=== PATIENT | male | born 1950 | race Caucasian/White ===

== ENCOUNTER 2016-12-03 15:42 | Inpatient (IN) | payer OTHER, BC ==
[~2016-12-03] VITALS: Ht 182.9 cm; Wt 95.3 kg
[~2016-12-03 15:42] MED LIST: ALLOPURINOL300 MG PO; AMLODIPINE BESYL5 MG PO; ASPIRIN EC325 MG PO; ASPIRIN325 MG PO; ATORVASTATIN CA10 MG PO; BUPROPION XL150 MG PO; CELECOXIB200 MG PO; ENDOCET 5-3251 EACH PO; ESCITALOPRAM OX10 MG PO; FERROUS SULFAT325 MG PO; FOLIC ACID1 MG PO; FUROSEMIDE20 MG PO; HYDROCODON-ACE1 EAC7 PO; HYTRIN5 MG PO; LASIX20 MG PO; LIBRIUM25 MG PO; LIPITOR10 MG PO; LISINOPRIL10 MG PO; MICRO-K10 ME2 PO; NORVASC5 MG PO; PANTOPRAZOLE SO40 MG PO; POTASSIUM CHLO10 ME3 PO; PROTONIX40 MG PO; RANITIDINE HCL150 MG PO; SODIUM BICARBO325 MG PO; SODIUM CHLORIDE1 G1 PO; SPIRONOLACTONE100 MG PO; SPIRONOLACTONE25 MG PO; THERAGRAN1 TABLET PO; THIAMINE HCL100 MG PO; VANCOCIN 250 M250 MG PO; VANCOCIN HCL125 MG PO; VITAMIN B-1100 MG PO; WELLBUTRIN XL150 MG PO; ZYLOPRIM300 MG PO
[2016-12-03 17:04] LABS: HEMATOCRIT 29.9 % (38.0-50.0); MCH 31.8 PG (29.0-34.0); MCHC 33.1 G/DL (30.0-36.0); MCV 96.1 FL (86-99); MEAN PLAT.VOLUME 7.9 uM^3 (9.0-12.4); RBC DIS.WIDTH-CV 14.7 % (11.8-14.6); RBC DIS.WIDTH-SD 48.1 % (39-53)
[2016-12-03 17:05] LABS: PLATELET COUNT 229 K/uL (156-360); RED BLOOD COUNT 3.11 M/uL (4.00-5.50); WHITE BLOOD COUNT 18.7 K/uL (4.1-10.2)
[2016-12-03 17:08] LABS: INTER. NORMALIZED RATIO 1.2; PROTHROMBIN TIME 12.7 (9.2-11.2)
[2016-12-03 17:11] LABS: CHLORIDE 99 mEq/L (99-109); POTASSIUM 4.9 mEq/L (3.7-5.4); SODIUM 132 mEq/L (136-147)
[2016-12-03 17:13] LABS: GLUCOSE 63 mg/dL (70-99)
[2016-12-03 17:14] LABS: ANION GAP 11 MEQ/L (2-14)
[2016-12-03 17:17] LABS: GFR ESTIMATE (CALCULATED) 34 mL/min/
[2016-12-03 17:18] LABS: UREA NITROGEN (BUN) 22 mg/dL (9-23)
[2016-12-03 17:23] LABS: TROP-I INTERPRETATION NEGATIVE; TROPONIN-I 0.06 ng/mL (0.0-0.30)
[2016-12-03] MEDS ORDERED: BUPROPION XL300 MG PO (18:22)
[2016-12-03] MEDS ORDERED: LIDODERM 5% P1 PATCH TD (18:23)
[2016-12-03] MEDS ORDERED: DULCOLAX10 MG PR (18:25)
[2016-12-03] MEDS ORDERED: SODIUM CHLORIDE1 G1 PO (18:25)
[2016-12-03] MEDS ORDERED: PHILLIPS'400 MG/5 M PO (18:26)
[2016-12-03] MEDS ORDERED: MIRALAX255 GM PO (18:26)
[2016-12-03 19:35] LABS: POINT-OF-CARE METER ID UU13113702; POINT-OF-CARE USER ID SNPMEH
[2016-12-03 21:15] VITALS: BP 140/112; BP 95/47
[2016-12-03 22:00] VITALS: BP 96/53
[2016-12-03 22:28] LABS: METH RESISTANT S AUREUS PCR NEGATIVE (NEGATIVE)
[2016-12-03 22:30] VITALS: BP 82/53
[2016-12-03 22:30] LABS: PROBE CHECK PASS; SPECIMEN PROCESSING CONTROL PASS
[2016-12-03 23:00] VITALS: BP 95/59
[2016-12-03 23:30] VITALS: BP 100/58
[2016-12-04] VITALS (38 sets, daily range): BP systolic 75–104; BP diastolic 45–65
[2016-12-04 01:01] LABS: TYPE OF FLUID PARACENTESIS
[2016-12-04 02:22] LABS: BODY FLUID RBC'S < 1000 /MM^3 (0-100); BODY FLUID WBC'S 46 /MM^3 (0-500)
[2016-12-04 02:49] LABS: BODY FLUID EOSINOPHILS 0 % (0-25); MONO RAW COUNT 38; MONONUCLEAR WBC'S 38 %; POLY RAW COUNT 62; POLYNUCLEAR WBC'S 62 % (0-25)
[2016-12-04 02:51] LABS: COMMENT MANY MACROPHAGES SEE
[2016-12-04 06:31] LABS: ALKALINE PHOSPHATASE 68 IU/L (3-129); ANION GAP 9 MEQ/L (2-14); CHLORIDE 105 MEQ/L (99-109); GFR ESTIMATE (CALCULATED) 38 mL/min/; GLUCOSE 72 mg/dL (70-99); MAGNESIUM 1.4 mg/dl (1.3-2.7); POTASSIUM 4.3 MEQ/L (3.7-5.4); SAMPLE HEMOLYSIS CHECK 0; SAMPLE ICTERIC CHECK 0; SAMPLE LIPEMIA CHECK 0; SODIUM 135 MEQ/L (136-147); TOTAL BILIRUBIN 0.9 MG/DL (0.0-1.0); UREA NITROGEN (BUN) 21 mg/dL (9-23)
[2016-12-04 07:13] LABS: RED BLOOD COUNT ND M/uL (4.00-5.50); WHITE BLOOD COUNT ND K/uL (4.1-10.2)
[2016-12-04 07:14] LABS: HEMATOCRIT ND % (38.0-50.0); MCH ND PG (29.0-34.0); MCHC ND G/DL (30.0-36.0); MCV ND FL (86-99); PLATELET COUNT ND K/uL (156-360); RBC DIS.WIDTH-CV ND % (11.8-14.6); RBC DIS.WIDTH-SD ND % (39-53)
[2016-12-04 07:15] LABS: MEAN PLAT.VOLUME ND uM^3 (9.0-12.4)
[2016-12-04 07:29] LABS: INTER. NORMALIZED RATIO 1.5; PROTHROMBIN TIME 15.2 (9.2-11.2); PTT 39.5 (25-32)
[2016-12-04 08:49] LABS: ADD MIUA? YES; BILIRUBIN NEGATIVE; BLOOD MODERATE; COLOR YELLOW ((YELLOW)); GLUCOSE (STRIP) NEGATIVE; KETONES NEGATIVE; LEUKOCYTES NEGATIVE; NITRITE NEGATIVE; PROTEIN (STRIP) NEGATIVE; UROBILINOGEN 0.2 MG/DL (0.2-1.0)
[2016-12-04 08:51] LABS: CRYSTALS NONE SEEN; EPITHELIAL CELLS RARE; MUCUS NONE SEEN; PATHOLOGICAL CAST NONE SEEN; SMALL ROUND CELL NONE SEEN; UCUL ADDED? NO; YEAST-LIKE CELL NONE SEEN
[2016-12-04 09:05] LABS: HEMATOCRIT 19.8 % (38.0-50.0); MCHC 33.3 G/DL (30.0-36.0); MCV 96.1 FL (86-99); MEAN PLAT.VOLUME 8.4 uM^3 (9.0-12.4); RBC DIS.WIDTH-SD 51.3 % (39-53)
[2016-12-04 09:23] LABS: RED BLOOD COUNT 2.06 M/uL (4.00-5.50); WHITE BLOOD COUNT 12.5 K/uL (4.1-10.2)
[2016-12-04 09:24] LABS: PLATELET COUNT 93 K/uL (156-360)
[2016-12-04 09:55] LABS: BACTERIA 1+; CASTS PRESENT /LPF; HYALINE CASTS RARE /LPF
[2016-12-04 22:26] LABS: HEMATOCRIT 24.1 % (38.0-50.0); MCH 31.1 PG (29.0-34.0); MCHC 33.2 G/DL (30.0-36.0); MCV 93.8 FL (86-99); PLATELET COUNT 86 K/uL (156-360); RBC DIS.WIDTH-SD 50.3 % (39-53)
[2016-12-04 22:30] LABS: RED BLOOD COUNT 2.57 M/uL (4.00-5.50); WHITE BLOOD COUNT 8.1 K/uL (4.1-10.2)
[2016-12-05] VITALS (13 sets, daily range): BP systolic 91–122; BP diastolic 57–77
[2016-12-05 05:45] LABS: HEMATOCRIT 24.9 % (38.0-50.0); MCH 31.5 PG (29.0-34.0); MCHC 32.9 G/DL (30.0-36.0); MCV 95.8 FL (86-99); MEAN PLAT.VOLUME 8.6 uM^3 (9.0-12.4); PLATELET COUNT 98 K/uL (156-360); RBC DIS.WIDTH-CV 15.2 % (11.8-14.6); WHITE BLOOD COUNT 7.5 K/uL (4.1-10.2)
[2016-12-05 05:59] LABS: INTER. NORMALIZED RATIO 1.4; PROTHROMBIN TIME 14.8 (9.2-11.2); PTT 38.3 (25-32)
[2016-12-05 06:18] LABS: ALKALINE PHOSPHATASE 57 IU/L (3-129); ANION GAP 8 MEQ/L (2-14); CHLORIDE 108 MEQ/L (99-109); GLUCOSE 77 mg/dL (70-99); MAGNESIUM 1.3 mg/dl (1.3-2.7); POTASSIUM 3.7 MEQ/L (3.7-5.4); SAMPLE HEMOLYSIS CHECK 0; SAMPLE ICTERIC CHECK 0; SAMPLE LIPEMIA CHECK 0; SODIUM 137 MEQ/L (136-147); UREA NITROGEN (BUN) 17 mg/dL (9-23)
[2016-12-05 06:19] LABS: GFR ESTIMATE (CALCULATED) 54 mL/min/; TOTAL BILIRUBIN 1.1 MG/DL (0.0-1.0)
[2016-12-06 04:00] VITALS: BP 132/86
[2016-12-06 05:35] LABS: MCH 31.7 PG (29.0-34.0); MCHC 33.2 G/DL (30.0-36.0); MCV 95.6 FL (86-99); MEAN PLAT.VOLUME 8.7 uM^3 (9.0-12.4); PLATELET COUNT 101 K/uL (156-360); RBC DIS.WIDTH-CV 15.2 % (11.8-14.6); RBC DIS.WIDTH-SD 52.5 % (39-53); RED BLOOD COUNT 2.93 M/uL (4.00-5.50); WHITE BLOOD COUNT 7.2 K/uL (4.1-10.2)
[2016-12-06 05:49] LABS: INTER. NORMALIZED RATIO 1.4; PROTHROMBIN TIME 14.4 (9.2-11.2); PTT 36.8 (25-32)
[2016-12-06 06:07] LABS: ALKALINE PHOSPHATASE 61 IU/L (3-129); ANION GAP 7 MEQ/L (2-14); CHLORIDE 108 MEQ/L (99-109); GFR ESTIMATE (CALCULATED) > 59 mL/min/; GLUCOSE 81 mg/dL (70-99); MAGNESIUM 1.2 mg/dl (1.3-2.7); POTASSIUM 3.5 MEQ/L (3.7-5.4); SAMPLE HEMOLYSIS CHECK 0; SAMPLE ICTERIC CHECK 0; SAMPLE LIPEMIA CHECK 0; SODIUM 137 MEQ/L (136-147); TOTAL BILIRUBIN 0.9 MG/DL (0.0-1.0); UREA NITROGEN (BUN) 12 mg/dL (9-23)
[2016-12-06 08:00] VITALS: BP 127/81
[2016-12-06 15:40] VITALS: BP 118/78
[2016-12-06 20:17] VITALS: BP 109/70
[2016-12-06 23:51] VITALS: BP 124/79
[2016-12-07 04:18] VITALS: BP 126/78
[2016-12-07 08:00] VITALS: BP 136/90
[2016-12-07 15:46] VITALS: BP 108/69
[2016-12-07 23:31] VITALS: BP 132/78
[2016-12-08 07:14] LABS: EOSINOPHIL (%) 3.1 % (0-5); EOSINOPHIL COUNT 0.2 K/uL (0-0.3); HEMATOCRIT 31.8 % (38.0-50.0); IMMATURE GRANULOCYTE (%) 0.2 % (0.0-0.7); LYMPHOCYTE COUNT 1.3 K/uL (1.0-2.8); MCH 31.2 PG (29.0-34.0); MCHC 32.7 G/DL (30.0-36.0); MCV 95.5 FL (86-99); MEAN PLAT.VOLUME 9.1 uM^3 (9.0-12.4); MONOCYTE (%) 8.3 % (3-12); MONOCYTE COUNT 0.5 K/uL (0-0.8); NEUTROPHIL (%) 67.6 % (45-76); NEUTROPHIL COUNT 4.3 K/uL (1.8-6.4); PLATELET COUNT 116 K/uL (156-360); RBC DIS.WIDTH-SD 51.9 % (39-53); RED BLOOD COUNT 3.33 M/uL (4.00-5.50); WHITE BLOOD COUNT 6.4 K/uL (4.1-10.2)
[2016-12-08 07:23] VITALS: BP 131/77
[2016-12-08 07:39] LABS: ALKALINE PHOSPHATASE 67 IU/L (3-129); ANION GAP 7 MEQ/L (2-14); CHLORIDE 107 MEQ/L (99-109); GFR ESTIMATE (CALCULATED) > 59 mL/min/; GLUCOSE 80 mg/dL (70-99); MAGNESIUM 1.2 mg/dl (1.3-2.7); POTASSIUM 3.3 MEQ/L (3.7-5.4); SAMPLE HEMOLYSIS CHECK 0; SAMPLE ICTERIC CHECK 0; SAMPLE LIPEMIA CHECK 0; SODIUM 136 MEQ/L (136-147); UREA NITROGEN (BUN) 7 mg/dL (9-23)
[2016-12-08 11:10] VITALS: BP 129/73
[2016-12-08 15:30] VITALS: BP 126/69
[2016-12-08 19:22] VITALS: BP 120/73
[2016-12-08 23:45] VITALS: BP 114/66
[2016-12-09 03:02] VITALS: BP 113/63
[2016-12-09 07:37] LABS: EOSINOPHIL (%) 3.2 % (0-5); EOSINOPHIL COUNT 0.2 K/uL (0-0.3); HEMATOCRIT 29.9 % (38.0-50.0); IMMATURE GRANULOCYTE (%) 0.2 % (0.0-0.7); LYMPHOCYTE COUNT 1.2 K/uL (1.0-2.8); MCH 30.8 PG (29.0-34.0); MCHC 32.4 G/DL (30.0-36.0); MCV 94.9 FL (86-99); MONOCYTE (%) 7.7 % (3-12); MONOCYTE COUNT 0.5 K/uL (0-0.8); NEUTROPHIL COUNT 4.4 K/uL (1.8-6.4); PLATELET COUNT 103 K/uL (156-360); RBC DIS.WIDTH-CV 15.1 % (11.8-14.6); RBC DIS.WIDTH-SD 51.3 % (39-53); RED BLOOD COUNT 3.15 M/uL (4.00-5.50); WHITE BLOOD COUNT 6.3 K/uL (4.1-10.2)
[2016-12-09 08:04] LABS: ALKALINE PHOSPHATASE 62 IU/L (3-129); ANION GAP 7 MEQ/L (2-14); CHLORIDE 107 MEQ/L (99-109); GFR ESTIMATE (CALCULATED) > 59 mL/min/; GLUCOSE 79 mg/dL (70-99); POTASSIUM 3.3 MEQ/L (3.7-5.4); SAMPLE HEMOLYSIS CHECK 0; SAMPLE ICTERIC CHECK 0; SAMPLE LIPEMIA CHECK 0; SODIUM 136 MEQ/L (136-147); TOTAL BILIRUBIN 0.9 MG/DL (0.0-1.0); UREA NITROGEN (BUN) 5 mg/dL (9-23)
[2016-12-09 08:37] VITALS: BP 137/79
[2016-12-09 09:41] LABS: MAGNESIUM 1.3 mg/dl (1.3-2.7)
[2016-12-09 12:00] VITALS: BP 125/70
[2016-12-09 16:00] VITALS: BP 116/56
[2016-12-09 19:26] VITALS: BP 102/54
[2016-12-09 23:32] VITALS: BP 101/59
[2016-12-10] VITALS (8 sets, daily range): BP systolic 102–128; BP diastolic 57–70
[2016-12-10 06:25] LABS: EOSINOPHIL (%) 2.8 % (0-5); EOSINOPHIL COUNT 0.2 K/uL (0-0.3); HEMATOCRIT 28.8 % (38.0-50.0); IMMATURE GRANULOCYTE (%) 0.3 % (0.0-0.7); LYMPHOCYTE COUNT 1.4 K/uL (1.0-2.8); MCH 31.6 PG (29.0-34.0); MCV 95.7 FL (86-99); MEAN PLAT.VOLUME 9.3 uM^3 (9.0-12.4); MONOCYTE (%) 6.6 % (3-12); MONOCYTE COUNT 0.4 K/uL (0-0.8); NEUTROPHIL (%) 68.4 % (45-76); NEUTROPHIL COUNT 4.4 K/uL (1.8-6.4); PLATELET COUNT 110 K/uL (156-360); RBC DIS.WIDTH-CV 15.2 % (11.8-14.6); RBC DIS.WIDTH-SD 52.6 % (39-53); RED BLOOD COUNT 3.01 M/uL (4.00-5.50); WHITE BLOOD COUNT 6.4 K/uL (4.1-10.2)
[2016-12-10 06:46] LABS: ALKALINE PHOSPHATASE 59 IU/L (3-129); ANION GAP 6 MEQ/L (2-14); CHLORIDE 106 MEQ/L (99-109); GFR ESTIMATE (CALCULATED) > 59 mL/min/; GLUCOSE 85 mg/dL (70-99); POTASSIUM 3.6 MEQ/L (3.7-5.4); SAMPLE HEMOLYSIS CHECK 0; SAMPLE ICTERIC CHECK 0; SAMPLE LIPEMIA CHECK 0; SODIUM 136 MEQ/L (136-147); TOTAL BILIRUBIN 0.9 MG/DL (0.0-1.0); UREA NITROGEN (BUN) 4 mg/dL (9-23)
[2016-12-10 10:29] LABS: MAGNESIUM 1.4 mg/dl (1.3-2.7)
[2016-12-11 06:45] LABS: EOSINOPHIL (%) 4.1 % (0-5); EOSINOPHIL COUNT 0.2 K/uL (0-0.3); HEMATOCRIT 29.2 % (38.0-50.0); LYMPHOCYTE COUNT 1.4 K/uL (1.0-2.8); MCH 31.5 PG (29.0-34.0); MCHC 32.9 G/DL (30.0-36.0); MCV 95.7 FL (86-99); MEAN PLAT.VOLUME 9.2 uM^3 (9.0-12.4); MONOCYTE (%) 7.9 % (3-12); MONOCYTE COUNT 0.4 K/uL (0-0.8); NEUTROPHIL (%) 59.8 % (45-76); PLATELET COUNT 115 K/uL (156-360); RBC DIS.WIDTH-CV 15.1 % (11.8-14.6); RED BLOOD COUNT 3.05 M/uL (4.00-5.50); WHITE BLOOD COUNT 5.1 K/uL (4.1-10.2)
[2016-12-11 07:59] VITALS: BP 121/72
[2016-12-11 09:00] LABS: ALKALINE PHOSPHATASE 65 IU/L (3-129); ANION GAP 5 MEQ/L (2-14); CHLORIDE 105 MEQ/L (99-109); GFR ESTIMATE (CALCULATED) > 59 mL/min/; GLUCOSE 79 mg/dL (70-99); MAGNESIUM 1.5 mg/dl (1.3-2.7); POTASSIUM 3.9 MEQ/L (3.7-5.4); SAMPLE HEMOLYSIS CHECK 0; SAMPLE ICTERIC CHECK 0; SAMPLE LIPEMIA CHECK 0; SODIUM 134 MEQ/L (136-147); TOTAL BILIRUBIN 0.9 MG/DL (0.0-1.0); UREA NITROGEN (BUN) 4 mg/dL (9-23)
[2016-12-11] MEDS ORDERED: MAG-OXIDE400 MG PO (09:36)
[2016-12-11 11:31] VITALS: BP 119/71
== END 2016-12-11 13:07 | DRG 871 ==
LOC: EME 15:42 → 2EAST 18:24 → 4WEST 18:24 → EDOF 18:24 → 4WEST 21:05 → 2EAST 12-05 19:32
PROVIDERS: Emergency Medicine; Hospitalist; Internal Medicine; Internal Medicine Critical Care Medicine
PROC: 0W9G3ZZ Drainage of Peritoneal Cavity, Percutaneous Approach (ICD-10-PCS; principal; 2016-12-04)
DX: A41.9 Sepsis, unspecified organism (principal); J96.01 Acute respiratory failure with hypoxia; N17.9 Acute kidney failure, unspecified; E87.1 Hypo-osmolality and hyponatremia; L89.613 Pressure ulcer of right heel, stage 3; K72.90 Hepatic failure, unspecified without coma; E78.5 Hyperlipidemia, unspecified; D63.8 Anemia in other chronic diseases classified elsewhere; I95.9 Hypotension, unspecified; I12.9 Hypertensive chronic kidney disease with stage 1 through stage 4 chronic kidney disease, or unspecified chronic kidney disease; R60.1 Generalized edema; K70.31 Alcoholic cirrhosis of liver with ascites; R00.0 Tachycardia, unspecified; K21.9 Gastro-esophageal reflux disease without esophagitis; F10.20 Alcohol dependence, uncomplicated; S41.111A Laceration without foreign body of right upper arm, initial encounter; R65.20 Severe sepsis without septic shock; E83.42 Hypomagnesemia; N18.9 Chronic kidney disease, unspecified; Y92.9 Unspecified place or not applicable
CPT/HCPCS: 71010; 76705; 80048; 80053; 80202; 81003; 82140; 82948; 83605; 83735; 84100; 84484; 85025; 85027; 85610; 85730; 86850; 86900; 86901; 86920; 87040; 87070; 87205; 87493; 87641; 89051; 93005; 94799; 97530 GP; 99281; 99285; J1650; J2543; J3370; J3475; J7030; J7050; J7120; P9016; P9045; P9047

== ENCOUNTER → 2016-12-19 | Outpatient (CLI) | payer OTHER, BC ==
[~2016-12-19] MED LIST changes: +BUPROPION XL300 MG PO; +DULCOLAX10 MG PR; +LIDODERM 5% P1 PATCH TD; +MAG-OXIDE400 MG PO; +MIRALAX255 GM PO; +PHILLIPS'400 MG/5 M PO
== END ==
LOC: RAD 07:38
PROC: 0W9G3ZZ Drainage of Peritoneal Cavity, Percutaneous Approach (ICD-10-PCS; principal; 2016-12-19)
DX: R18.8 Other ascites (principal)

== ENCOUNTER → 2016-12-31 | Outpatient (CLI) | payer OTHER, BC | END | disposition home or self-care (01) | LOC: OPR 07:10 → EDSTATUS 07:30 → OPR 07:30 | PROC: 0D9W30Z Drainage of Peritoneum with Drainage Device, Percutaneous Approach (ICD-10-PCS; principal; 2016-12-31) | DX: R18.8 Other ascites (principal); K74.60 Unspecified cirrhosis of liver | CPT/HCPCS: 71010; 99211; C1729; J3010 ==